=== PATIENT | female | born 1990 ===

== ENCOUNTER 2017-06-10 00:31 | Observation (INO) | payer BC, OTHER ==
[2017-06-10 01:56] VITALS: BMI 24.5
[2017-06-10] MEDS ORDERED: Betamethasone Soluspan 30 mg/5mL Inj Susp IM ONE (02:04)
[2017-06-10] MEDS ORDERED: Lactated Ringer's 1,000 ML IV SCH (02:15)
[2017-06-10 02:41] LABS: SQUAMOUS EPITHIAL < 1 /hpf (0-5); URINE BACTERIA RARE (<OCC); URINE BILIRUBIN NEGATIVE (NEGATIVE); URINE BLOOD NEGATIVE (NEGATIVE); URINE CLARITY SLIGHTY-CLOUDY (Clear); URINE COLOR YELLOW (YELLOW); URINE GLUCOSE (UA) NEG (Normal); URINE LEUKOCYTE ESTERASE NEG Leu/uL (Negative); URINE PROTEIN NEGATIVE (NEGATIVE); URINE UROBILINOGEN 0.2-1.0 mg/dL (0.2-1.0)
[2017-06-10 02:43] LABS: BASO % 0.2 % (0.0-2.0); EOS % 0.4 % (0.0-4.0); HEMOGLOBIN 11.5 g/dL (12.0-16.0); LYMPH # 1.9 K/uL (1.0-4.3); LYMPH % 20.2 % (20.0-40.0); MEAN CELL VOLUME 94.7 fl (81.0-99.0); MEAN CORPUSCULAR HEMOGLOBIN 32.1 pg (27.0-31.0); MEAN CORPUSCULAR HGB CONC 33.9 g/dL (33.0-37.0); MEAN PLATELET VOLUME 9.6 fl (7.2-11.7); MONO # 0.6 K/uL (0.0-0.8); MONO % 6.3 % (0.0-10.0); NEUT # 6.7 K/uL (1.8-7.0); NEUT % 72.9 % (50.0-75.0); NRBC % 0.1 % (0.0-0.0); RBC 3.57 Mil/uL (3.80-5.20); RED CELL DISTRIBUTION WIDTH 12.5 % (11.5-14.5); WHITE BLOOD COUNT 9.2 K/uL (4.8-10.8)
--- NOTE | 2017-06-10 13:27 | OBPN ---
Datetime: 06/10/2017 11:19 IP Progress Plan: Continue present management Contraction Comments Provider: ctxning every 8-10 mins FHR - Baseline A Provider: 125 IP Progress Note Comment: Patient reports still some mild abdominal cramping, no new vaginal bleedin g, leaking, +FM. Patient unchand on vaginal exam, CBC and UA negative. Will continue to monitor for p reterm labor, continue fluids. UHR=356 mod chelita, +accels, no decels. Patient to recieve second dose of Betamethasone later tonight. Vital Signs Provider: Reviewed; Within Normal Limits NICHD Accel Fetus A IP Provider: [id number] NICHD Variability Prov Fetus A: Moderate 6-25bpm Dilatation, Provider: 1-2 Effacement, Provider: 60 Station, Provider: -3 NICHD Decel Fetus A IP Provider: None Datetime: 06/10/2017 00:59 FHR Category Provider Fetus A: Category I
[2017-06-10] MEDS: Lactated Ringer's 1,000 ML IV SCH (19:30)
[2017-06-11] MEDS ORDERED: Betamethasone Soluspan 30 mg/5mL Inj Susp IM ONE (02:49)
[2017-06-11] MEDS: Lactated Ringer's 1,000 ML IV SCH (03:00)
--- NOTE | 2017-06-11 10:45 | OBPN ---
Datetime: 06/11/2017 10:42 IP Progress Note Comment: Patient observed at labor and delivery. Patient without complaints at this time. Patient denies any contractions, vaginal bleeding, leakage of fluids. Patient reports good fet al movement. Patient status post full steroid course. Plan to discharge patient with labor pr ecautions. Discussed plan with patient and all patient questions answered. Patient will follow up in office in 3-4 days.
[2017-06-12 08:57] VITALS: BP 90/41; PULSE 113; RESP 16; TEMP 97.8; O2SAT 99
== END 2017-06-11 11:15 | disposition home or self-care (01) ==
LOC: H.EROB2 00:31 → H.L&D 06:00
PROVIDERS: ADMIT Obstetrics & Gynecology; ATTEND Obstetrics & Gynecology
DX: O47.03 False labor before 37 completed weeks of gestation, third trimester (principal)
CPT/HCPCS: 81003; 85025; 86850; 86900; 96360; 96361; 96372; 99284; G0378; J0702; J7120

== ENCOUNTER 2017-06-12 11:51 | Inpatient (IN) | payer BC, OTHER ==
[2017-06-12] MEDS: Lactated Ringer's 1,000 ML IV SCH ×4 (13:00→23:47)
[2017-06-12] MEDS ORDERED: Penicillin G 5 Million Unit Vial IVPB ONE (13:52)
[2017-06-12 14:03] VITALS: O2SAT 100
[2017-06-12 14:21] LABS: BASO % 0.2 % (0.0-2.0); EOS % 0.2 % (0.0-4.0); HEMOGLOBIN 11.2 g/dL (12.0-16.0); LYMPH # 1.9 K/uL (1.0-4.3); LYMPH % 21.3 % (20.0-40.0); MEAN CELL VOLUME 95.9 fl (81.0-99.0); MEAN CORPUSCULAR HGB CONC 33.4 g/dL (33.0-37.0); MEAN PLATELET VOLUME 10.1 fl (7.2-11.7); MONO # 0.9 K/uL (0.0-0.8); MONO % 9.6 % (0.0-10.0); NEUT # 6.2 K/uL (1.8-7.0); NEUT % 68.7 % (50.0-75.0); NRBC % 0.1 % (0.0-0.0); RBC 3.49 Mil/uL (3.80-5.20); RED CELL DISTRIBUTION WIDTH 12.8 % (11.5-14.5)
--- NOTE | 2017-06-12 14:26 | OBHP ---
Datetime: 06/12/2017 12:45 IP Adm Impression: , intrauterine ; Ruptured Membranes IP Admit Plan: Admit to unit; Initiate Section protocol; Observation/Evaluation Pelvic Type - PN: Adequate Extremities - PN: Normal Abdomen - PN: Normal Back - PN: Normal Breast - PN: Not Done Lungs - PN: Normal Heart - PN: Normal Thyroid - PN: Normal Neurologic - PN: Normal HEENT - PN: Normal General - PN: Normal FHR - Baseline A Provider: 140 Amniotic Fluid Color, Provider: Clear Membranes, Provider: Ruptured Pool Provider: Positive Nitrazine Provider: Positive EGA AdmitDate IP: 34.6 Vital Signs Provider: Reviewed; Within Normal Limits IP Indication for Induction: Not Applicable IP Chief Complaint: Suspected ruptured membranes NICHD Variability Prov Fetus A: Moderate 6-25bpm NICHD Accel Fetus A IP Provider: 15X15 FHR Category Provider Fetus A: Category I NICHD Decel Fetus A IP Provider: None Genitourinary Exam: Normal DTRs - PN: Not Done Datetime: 06/12/2017 12:32 Admit Comment, IP Provider: CC : LOF HPI: 27 YO @34.6wks (MIRIAM 07/18/17) IUP presents to [facility] c/o LOF and ruptured membrane. LOF happened around 1115 PM, clear fluid, denies and ctx/bv/ +FM, denies any pain, dizziness, SOB, chest pain or weakness. Patient ate a sandwich at 930am MD: Dr. Cui PMH: Migrane headaches SurgH: c-sec ; AB x 1, ; appendectomy 2005 FH: hx of DM SH: denies ETOH, smoking and illlcit drug use Allergies: NKDA Meds: PNV, Mg PRN PE: Gen: NAD Cardio: S1S2 no M/G/R Resp: clear breath sounds b/l Abdomen: gravid, bs+, mild tenderness LLQ-round ligament Neuro: AAOx3 Ext: NT, No edema noted Cervx: 1-2cm EXam: + Ruptured membrane, clear Fluid A/P: 27 @ 34.6wks IUP with LOF/Ruptured - Admite patient in L_D -continue monitor -blood work - Initiate protocol, (Ate at 930) - records needed Case discussed with Dr. Linder --- Mata Bateman, PGY-1 OB Hospitalist Addendum:Pt seen and examined by me. Agree w/ above. 27 yo at 34+6 wks w / SROM w/ h/o previous c/s x 2, to be admitted for repeat section. Pt desires permanent leticia rilization. Consents for surgery and possible transfusion signed. Pt last ate at 9:30am. Will pro ceed w/ section at 6pm. (ES) Dilatation, Provider: 1-2 Effacement, Provider: thick Station, Provider: -3 Datetime: 06/10/2017 11:19 Contraction Comments Provider: ctxning every 8-10 mins Datetime: 06/10/2017 00:59 IP Chief Complaint Other: round ligament pain (L)
--- NOTE | 2017-06-12 14:32 | OBADHP ---
Datetime: 06/12/2017 12:45 Admit Comment, IP Provider: CC : LOF HPI: 27 YO @34.6wks (MIRIAM 07/18/17) IUP presents to [facility] c/o LOF and ruptured membrane. LOF happened around 1115 PM, clear fluid, denies and ctx/bv/ +FM, denies any pain, dizziness, SOB, chest pain or weakness. Patient ate a sandwich at 930am MD: Dr. Cui PMH: Migrane headaches SurgH: c-sec ; AB x 1, ; appendectomy 2005 FH: hx of DM SH: denies ETOH, smoking and illlcit drug use Allergies: NKDA Meds: PNV, Mg PRN PE: Gen: NAD Cardio: S1S2 no M/G/R Resp: clear breath sounds b/l Abdomen: gravid, bs+, mild tenderness LLQ-round ligament Neuro: AAOx3 Ext: NT, No edema noted Cervx: 1-2cm EXam: + Ruptured membrane, clear Fluid A/P: 27 @ 34.6wks IUP with LOF/Ruptured - Admite patient in L_D -continue monitor -blood work - Initiate protocol, (Ate at 930) - records needed Case discussed with Dr. Linder --- Mata Bateman, PGY-1 O B Hospitalist Addendum: Pt seen and examined by me. Agree w/ above. 27 yo at 34+6 wks w / SROM w/ h/o previous c/s x 2, to be admitted for repeat section. Pt desires permanent leticia rilization. Consents for surgery and possible transfusion signed. Pt last ate at 9:30am. Will pro ceed w/ section at 6pm. (ES) Pelvic Type - PN: Adequate Extremities - PN: Normal Abdomen - PN: Normal Back - PN: Normal Breast - PN: Not Done Lungs - PN: Normal Heart - PN: Normal Thyroid - PN: Normal Neurologic - PN: Normal HEENT - PN: Normal General - PN: Normal FHR - Baseline A Provider: 140 Amniotic Fluid Color, Provider: Clear Membranes, Provider: Ruptured Pool Provider: Positive Nitrazine Provider: Positive Vital Signs Provider: Reviewed; Within Normal Limits IP Chief Complaint: Suspected ruptured membranes NICHD Variability Prov Fetus A: Moderate 6-25bpm NICHD Accel Fetus A IP Provider: [id number] FHR Category Provider Fetus A: Category I NICHD Decel Fetus A IP Provider: None Genitourinary Exam: Normal DTRs - PN: Not Done EGA AdmitDate IP: 34.6 IP Adm Impression: , intrauterine ; Ruptured Membranes IP Admit Plan: Admit to unit; Initiate Section protocol; Observation/Evaluation Datetime: 06/12/2017 12:32 Dilatation, Provider: 1-2 Effacement, Provider: thick Station, Provider: -3 Datetime: 06/10/2017 11:19 Contraction Comments Provider: ctxning every 8-10 mins Datetime: 06/10/2017 00:59 IP Chief Complaint Other: round ligament pain (L)
[2017-06-12] MEDS ORDERED: ceFAZolin 1 GM in Sodium Chloride 0.9% 100 ML IVPB ONE (17:04)
[2017-06-12] MEDS ORDERED: Oxytocin 30 units/LR 500ML 30 UNITS/500 ML BAG IV ONE (17:14)
[2017-06-12] MEDS ORDERED: Oxytocin 30 units/LR 500ML 30 U/500 ML BAG IV ONE (17:16)
[2017-06-12] MEDS ORDERED: Morphine 1 mg/ml preservative-free Inj(Duramorph) ONE (17:21)
[2017-06-12] MEDS ORDERED: Phenylephrine 10 mg/ml Inj ONE (17:27)
[2017-06-12] MEDS ORDERED: ePHEDrine 50 mg/ml Inj ONE (17:27)
--- NOTE | 2017-06-12 19:14 | OBDS ---
DELIVERY PERSONNEL Nurse Captain Waiter Certified: maria l Delivery Doctor: MD Kailash Scrub Nurse: Anne Sub Plant Manager: Anjali Reece Rn,Sandy Barakat RN Anesthesiologist: MD Yosvany Wild Life Photographer: maria l Resident: MD Fransico MATERNAL INFORMATION Delivery Anesthesia: Spinal Medications in Delivery: pitocin Estimated Blood Loss (ml): 800cc Placenta Cultured: No RN Comments: Repeat with BTL; alive baby girl; 9/9;placenta complete;BTL done;see Md' s notes Provider Comments: Pre-op dx: 27 yo at 34+6 wks w/ PPROM, h/o previous c/s x 2, desires perm anent sterilization Post-op dx: same Procedure: Repeat low transverse section, Bilateral tubal ligation Surgeon: Kailash [employer] Development Engineer: Dr. Oswald Anesthesiologist: Dr. Bar Anesthesia: Spinal Findings: Viable female delivered through clear fluid at 18:04, Apgars 9 and 9. Wt 2680 gm s, 5#15. Nuchal cord x 1 easily reduced. Nl appearing uterus, tubes and ovaries. Omentum was adher ent to peritoneum. Complications: None EBL: 800mL LABOR SUMMARY EDC: 07/18/2017 00:00 No. Babies in Womb: 1 Attempted: No Labor Anesthesia: None LABOR INFORMATION Other Ripening Agents: na Oxytocin: na Group B Beta Strep: Not Done Antibiotics # of Doses: 2 Antibiotics Time of Last Dose: 1730 Steroids Given: > 24 Hours before Delivery Other Reason Not Administered: na MEMBRANES Membranes Rupture Method: Spontaneous Rupture of Membranes: 06/12/2017 11:15 Length of Rupture (hrs): 174.82 Amniotic Fluid Color: Clear Amniotic Fluid Amount: Scant Amniotic Fluid Odor: Normal STAGES OF LABOR Stage 3 hrs: -167 Stage 3 min: -59 BABY A INFORMATION Infant Delivery Date/Time: 06/19/2017 18:04 Method of Delivery: Born in Route : No : N/A Forceps: N/A Vacuum Extraction: N/A Shoulder Dystocia : No SHOULDER DYSTOCIA BABY A Infant Delivery Date/Time: 06/19/2017 18:04 PRESENTATION/POSITION BABY A Presentation: Cephalic Cephalic Presentation: Vertex PLACENTA INFORMATION BABY A Placenta Delivery Time : 06/12/2017 18:05 Placenta Method of Delivery: Manual Removal Placenta Status: Delivered SCORES BABY A Heart Rate 1 min: >100 bpm Resp Effort 1 min: Good Cry Reflex Irritability 1 min: Cough or Sneeze or Pulls Away Muscle Tone 1 min: Active Motion Color 1 min: Body [place], Extremities Blue SCORE 1 MIN: 9 Heart Rate 5 min: >100 bpm Resp Effort 5 min: Good Cry Reflex Irritability 5 min: Cough or Sneeze or Pulls Away Muscle Tone 5 min: Active Motion Color 5 min: Body [place], Extremities Blue SCORE 5 MIN: 9 INFANT INFORMATION BABY A Gestational Age at Delivery: 34.6 Gestational Status: Outcome : Liveborn Condition : Stable Sex: Female IDENTIFICATION/MEDS BABY A ID Band Number: [id number] ID Band Location: Left Leg; Left Arm WEIGHT/LENGTH BABY A Birthweight (gms): 2680 Weight (lb): 5 Infant Weight (oz): 15 CORD INFORMATION BABY A No. Cord Vessels: 3 Nuchal Cord : Around Neck x1, Loose Nuchal Cord Other: na True Knot: na Infant Cord pH Baby Arterial: na Infant Cord pH Baby Venous: na Cord Blood Taken: Yes Banking/Donate Info: na Suction: Mouth; Nose; Pharynx
[2017-06-12] MEDS ORDERED: Oxycodone/Acetaminophen 5/325 mg Tab PO PRN ×2 (21:25)
--- NOTE | 2017-06-12 22:28 | OP ---
PROCEDURE DATE: 06/12/2017 PREOPERATIVE DIAGNOSES: This is a 27-year-old, 4, para 2-0-1-2 at 34 weeks and 6 days with premature rupture of membranes, history of previous section x2 and she desires permanent sterilization. POSTOPERATIVE DIAGNOSES: This is a 27-year-old, 4, para 2-0-1-2 at 34 weeks and 6 days with premature rupture of membranes, history of previous section x2 and she desire permanent sterilization. PROCEDURE: Repeat low transverse section and bilateral tubal ligation. SURGEON: Raissa Linder MD HOSPITAL MEDICAL BILLER: MD Dr. Darek Nuñez was the surgical supervisor and participated in the surgery for the entire duration of the case. He helped create exposure. He also helped maintain hemostasis, operated throughout the case on the side of the patient that was across from him, and assisted in the delivery of the by applying fundal pressure. This case could not have been completed without hi assistance. TYPE OF ANESTHESIA: Spinal. ANESTHESIA ADMINISTERED BY: Rafy Bar MD FINDINGS: Viable female delivered through clear fluid at 1804, loose nuchal cord x1, Apgars were 9 and 9 at one and five minutes respectively. The weight was 2680 g or 5 pounds 15 ounces. Normal appearing uterus, tubes and ovaries. Omentum was adherent to the peritoneum. COMPLICATIONS: None. ESTIMATED BLOOD LOSS: About 800 mL DESCRIPTION OF PROCEDURE: The patient was taken to the operating room with IV running. Spinal was placed. She was then prepped and draped in a normal sterile fashion in the dorsal supine position with a leftward tilt. A Stauffer has been placed in the bladder. Time-out was done. A Pfannenstiel skin incision was then made with the scalpel and carried through to the underlying layer of fascia with the Bovie. The fascia was incised in the midline and the incision was extended laterally with the Bovie over a Radha. The inferior aspect of the fascial incision was then grasped with Ankur clamps, elevated, and the underlying rectus muscles were dissected off bluntly and with the Bovie. Attention was then turned to the superior aspect of this incision, which in a similar fashion was grasped, tented up with the Ankur clamps, and the rectus muscles dissected off bluntly and with the Bovie. The rectus muscles were in the midline. The peritoneum was entered digitally. The peritoneal incision was then extended superiorly and inferiorly with good visualization of the bladder. The bladder blade was then inserted and the vesicouterine peritoneum was identified, grasped with the pickups, and entered sharply with the Metzenbaum scissors. This incision was then extended laterally and the bladder flap was created digitally. The bladder blade was then reinserted and the lower uterine segment was incised in transverse fashion with the scalpel. The uterine incision was then extended laterally digitally. The bladder blade was removed and the 's head was delivered atraumatically. The nose and mouth were suctioned with the bulb suction. The cord was clamped and cut. There was a loose nuchal cord x1 that was easily reduced. The was handed off to the awaiting pressure tank operator. Cord blood was collected. The placenta was then removed manually. The uterus was exteriorized and cleared of all clots and debris with a dry sponge curettage. The uterine incision was repaired with 0 Vicryl in a running locked fashion. A hematoma was forming on the right side of the uterine incision and this was controlled with a single stitch of 0 Vicryl. A second layer of the same suture was then used in an imbricating fashion to reinforce the incision and for hemostasis. Attention was then turned to the right tube. A Praveen clamp was used to grasp the tube approximately 4 cm from the cornual region. A 3 cm segment of tube was ligated with 2-0 plain gut and excised. Good hemostasis was noted. Attention was then turned to the left tube and 3 cm segment of tube was ligated in a similar fashion and good hemostasis was noted. The abdomen was then well irrigated. The uterus was then returned to the abdomen. The gutters were cleared of all clots. The uterine incision was reexamined and found to be hemostatic. Both tubes were also re-examined and found to be hemostatic. The peritoneum was first attempted to be closed, but it was noted that there was omentum adherent to the peritoneum and so it was decided not to close the peritoneum. There was a small area of omentum that was bleeding and this was clamped and tied off with a 2-0 plain gut suture. It was also noted that the superior aspect of the right rectus muscle was bleeding and this was controlled with a few interrupted stitches of 2-0 plain gut. A few interrupted sutures of an absorbable suture were then used to reapproximate the rectus muscle. The fascia was then reapproximated with 0 Vicryl in a running fashion. The subcutaneous fat was well irrigated. The Bovie was applied to small bleeders and a single interrupted 2-0 plain gut stitch was used to reapproximate the space of the fat on the left side of the incision. The skin was then closed in a subcuticular fashion using 4-0 Monocryl. The patient tolerated the procedure well. Sponge, lap and needle counts were correct. The patient received 1 g of Ancef prior to the procedure. The patient was taken to recovery room in stable condition. Raissa Linder MD MTDJessica
[2017-06-13 07:07] LABS: HEMOGLOBIN 10.2 g/dL (12.0-16.0); MEAN CORPUSCULAR HEMOGLOBIN 32.2 pg (27.0-31.0); MEAN CORPUSCULAR HGB CONC 33.9 g/dL (33.0-37.0); RBC 3.18 Mil/uL (3.80-5.20); RED CELL DISTRIBUTION WIDTH 12.5 % (11.5-14.5); WHITE BLOOD COUNT 9.8 K/uL (4.8-10.8)
--- NOTE | 2017-06-14 08:18 | OBPPN ---
Datetime: 06/13/2017 08:13 PP Pain Prov: Within normal limits PP Nausea Prov: Denies PP Flatus Prov: Yes PP Breasts Prov: Normal PP Heart Prov: Normal PP Lungs Prov: Normal PP Abdomen/Uterus Prov: Normal PP Lochia Prov: Normal PP Vulva/Perineum Prov: Normal PP CVA Tenderness Prov: Normal PP Extremities Prov: Normal PP Comments Phys Exam Prov: Incision clean, dry, intact Uterus firm, below umbilicus No deep Tenderness bilaterally PP Impression Prov: Normal progression PP Plan Prov: Continue present management PP Progress Note Prov: Postoperative day #1 status post repeat , BTL-patient recovering wel l Postop CBC Patient out of bed and ambulating Pain control Stauffer out, void check Regular diet IP PP Procedures: None Vital Signs Provider PP: Reviewed; Within Normal Limits
--- NOTE | 2017-06-14 18:45 | OBPPN ---
Datetime: 06/14/2017 18:40 PP Pain Prov: Within normal limits PP Nausea Prov: Denies PP Flatus Prov: Yes PP Breasts Prov: Normal PP Heart Prov: Normal PP Lungs Prov: Normal PP Abdomen/Uterus Prov: Normal PP Lochia Prov: Normal PP Vulva/Perineum Prov: Normal PP CVA Tenderness Prov: Normal PP Extremities Prov: Normal PP Comments Phys Exam Prov: Incision clean/dry/intact PP Impression Prov: Normal progression PP Plan Prov: Continue present management PP Progress Note Prov: Patient denies CP, no SOB, no N/V, tolerating Po diet, ambulating/voiding wel l, mild lochia, abdominal pain tolerable with meds, +flatus, +BM A/P POD #2 1. Reg diet 2. Motrin/Percocet prn pain 3. Encourage ambulation/ IP PP Procedures: None Vital Signs Provider PP: Reviewed; Within Normal Limits
--- NOTE | 2017-06-15 07:10 | OBDCSUM ---
Datetime: 06/15/2017 07:07 Discharged to, Provider: Home Follow up at, Provider: Dr. Cui Disch Instr Activity: Normal activity Disch Instr Diet: Regular Discharge Instructions, Provider: Routine instructions given Discharge Diagnosis, Provider: Term Delivered Discharge Time: 06/15/2017 07:08 Follow up in weeks, Provider: 1 week Disch Activity Restrictions: No exercising; No lifting; No sexual activity; Nothing in vagina - Inte rcourse, tampons, douche Contraception after Delivery: Tubal Ligation
--- NOTE | 2017-06-15 07:10 | OBPPN ---
Datetime: 06/15/2017 07:04 PP Pain Prov: Within normal limits PP Nausea Prov: Denies PP Flatus Prov: Yes PP BM Prov: Yes PP Abdomen/Uterus Prov: Normal PP Lochia Prov: Normal PP Extremities Prov: Normal PP C/S Incision Prov: Normal PP Progress Prov: Normal PP Comments Phys Exam Prov: Incision: intact w/ steri strips PP Impression Prov: Normal progression PP Plan Prov: Discharge PP Progress Note Prov: POD 3 s/p repeat LTCS, BTL, doing well, breast and bottle feeding Rx's motrin and percocet given Discharge home today Vital Signs Provider PP: Reviewed; Within Normal Limits
[2017-06-15 20:15] VITALS: BP 116/56; PULSE 72; RESP 19; TEMP 97.5
== END 2017-06-15 14:45 | disposition home or self-care (01) | DRG 765 ==
LOC: H.EROB2 11:51 → H.EROB 12:30 → H.L&D 12:49 → H.EROB2 13:06 → H.OB/GYN 21:40
PROVIDERS: ADMIT Obstetrics & Gynecology; ATTEND Obstetrics & Gynecology
PROC: 10D00Z1 Extraction of Products of Conception, Low, Open Approach (ICD-10-PCS; principal; 2017-06-12)
PROC: 0UB70ZZ Excision of Bilateral Fallopian Tubes, Open Approach (ICD-10-PCS; 2017-06-12)
PROC: 4A1HXCZ Monitoring of Products of Conception, Cardiac Rate, External Approach (ICD-10-PCS; 2017-06-12)
DX: O34.211 Maternal care for low transverse scar from previous cesarean delivery (principal); O60.14X0 Preterm labor third trimester with preterm delivery third trimester, not applicable or unspecified; Z37.0 Single live birth; N85.8 Other specified noninflammatory disorders of uterus; Z30.2 Encounter for sterilization; O42.913 Preterm premature rupture of membranes, unspecified as to length of time between rupture and onset of labor, third trimester; O69.81X0 Labor and delivery complicated by cord around neck, without compression, not applicable or unspecified; Z3A.34 34 weeks gestation of pregnancy